=== PATIENT | female | born 1990 | race Caucasian/White ===

== ENCOUNTER 2016-10-09 18:53 | Emergency (ER) | payer BC, OTHER ==
[2016-10-09 19:03] VITALS: TEMP 98.9; BMI 31.8
--- NOTE | 2016-10-09 20:13 | PDOC ---
History of Present Illness - General Chief Complaint: Chest Pain Stated Complaint: CHEST PAIN Time Seen by Provider: 10/09/16 19:43 - History of Present Illness Initial Comments: 10/09/16 20:15 The patient is a 26 yo F with a past medical history significant for asthma, HTN , kidney stones, cholecystectomy, pseudotumor cerebri who presents with elevated blood pressure of 169/111 measured at home. The patient states shes had a stomach virus for the past week and saw her PCP who prescribed flagyl, percocet and pantoprazole. While at her PCPs office, the patient states her BP was found to be elevated and she was also prescribed Lisinopril 20 mg once daily. The patient states her PCP told her to report to the ED if her BP was greater than 170/110. The patient also endorses associated chest pain, palpitations and shortness of breath that began at 3pm today. The pain is exertional but not pleuritic. She states that she has had pain like this in the past. Pt endorses increased stressors in her life right now that may be contributing to her symptoms. The patient denies fevers, chills and cough. Denies h/o DVT/PE. Not on OCPs. The patient denies LE edema. Past History - Past Medical History Allergies/Adverse Reactions: Allergies Allergy/AdvReac Type Severity Reaction Status Date / Time acetazolamide AdvReac Unknown Verified 10/09/16 19:01 [From Diamox Sequels] Home Medications: Ambulatory Orders Ibuprofen [Advil -] 400 mg PO ONCE PRN 12/12/13 Ibuprofen [Motrin] 800 mg PO TID #20 tablet 12/12/13 Ondansetron [Zofran *Odt*] 4 mg SL TID #30 od.tablet 12/12/13 Oxycodone HCl/Acetaminophen [Percocet 5-325 mg Tablet] 1 - 2 tab PO Q6H #20 tablet 12/12/13 Lisinopril [Prinivil] 20 mg PO DAILY 10/09/16 Amlodipine Besylate 10 mg PO DAILY #7 tablet 10/10/16 Anemia: No Asthma: Yes Cancer: No Cardiac Disorders: No CVA: No COPD: No CHF: No Dementia: No Diabetes: No GI Disorders: Yes Disorders: No HTN: Yes Hypercholesterolemia: No Kidney Stones: Yes Liver Disease: No Seizures: No Thyroid Disease: No - Surgical History Abdominal Surgery: No Appendectomy: No Cardiac Surgery: No Cholecystectomy: Yes GI Surgery: Yes (GASTRIC SLEEVE) Lung Surgery: No Neurologic Surgery: (SPINAL TAPX2) Orthopedic Surgery: No - Immunization History Immunization Up to Date: No - Psycho/Social/Smoking Cessation Hx Anxiety: No Suicidal Ideation: No Smoking History: Current every day smoker Have you smoked in the past 12 months: Yes Number of Cigarettes Smoked Daily: 4 If you are a former smoker, when did you quit?: 4 months ago Information on smoking cessation initiated: Yes 'Breaking Loose' booklet given: 10/09/16 Hx Alcohol Use: No Drug/Substance Use Hx: No Substance Use Type: None Hx Substance Use Treatment: No Review of Systems - Review of Systems Comments:: 10/09/16 20:19 "GENERAL/CONSTITUTIONAL: No fever or chills. No weakness. HEAD, EYES, EARS, NOSE AND THROAT: No change in vision. No ear pain or discharge. No sore throat. CARDIOVASCULAR: +chest pain, shortness of breath and palpitations. Denies: lightheadedness. RESPIRATORY: No cough, wheezing, or hemoptysis. GASTROINTESTINAL: +nausea, no vomiting/diarrhea, No constipation. GENITOURINARY: No dysuria, frequency, or change in urination. MUSCULOSKELETAL: No joint or muscle swelling or pain. No neck or back pain. SKIN: No rash NEUROLOGIC: No headache, vertigo, loss of consciousness, or change in strength/ sensation. ALLERGIC/IMMUNOLOGIC: No hives or skin allergy. " *Physical Exam - Vital Signs Last Vital Signs Temp Pulse Resp BP Pulse Ox 98.9 F 90 18 164/112 100 10/09/16 19:01 10/09/16 19:01 10/09/16 19:01 10/09/16 19:01 10/09/16 19:01 - Physical Exam Comments: 10/09/16 20:20 "GENERAL: Awake, alert, and fully oriented, in no acute distress HEAD: No signs of trauma EYES: PERRLA, EOMI, sclera anicteric, conjunctiva clear ENT: Auricles normal inspection, hearing grossly normal, nares patent, oropharynx clear without exudates. Moist mucosa NECK: Normal ROM, supple, no lymphadenopathy, JVD, or masses LUNGS: Breath sounds equal, clear to auscultation bilaterally. No wheezes, and no crackles HEART: Regular rate and rhythm, normal S1 and S2, no murmurs, rubs or gallops ABDOMEN: Soft, epigastric tenderness to palpation, normoactive bowel sounds. No guarding, no rebound. No masses EXTREMITIES: Normal range of motion, no edema. No clubbing or cyanosis. No cords, erythema, or tenderness NEUROLOGICAL: Cranial nerves II through XII grossly intact. Normal speech, normal gait SKIN: Warm, Dry, normal turgor, no rashes or lesions noted. " Heart Score/ECG Review - History History: Slightly suspicious - Electrocardiogram EKG: Normal - Age Age: </= 45 - Risk Factors Risk Factors Heart Score: Yes Hx Hypertension, Yes Hx Obesity Based on the list above the patient has:: 1-2 risk factors - ECG Impressions Comment:: 10/09/16 20:05 no JOHNIE/STDs, no TWIs, intervals wnl, axis wnl ED Treatment Course - LABORATORY CBC & Chemistry Diagram: 10/09/16 20:25 10/09/16 20:25 - RADIOLOGY Radiology Studies Ordered: Category Date Time Status CHEST PA & LAT [RAD] Stat Radiology 10/09/16 20:02 Ordered Medical Decision Making - Medical Decision Making 10/09/16 20:05 26 F with obesity, HTN, pseudotumor cerebri presenting to ER with elevated BP, chest pain, epigastric pain, and headache. Symptoms likely due to recent gastroenteritis. ACS unlikely given pt's age and nonischemic EKG. However, she does have some risk factors, including obesity and HTN, so will r/o ACS with 2 trops. Will also r/o pancreatitis w/ lipase. Pt has no DVT/PE risk factors, PERC 0. Pt with BP 160s systolic, poorly controlled on lisinopril 20mg daily. Likely elevated 2/2 life stressors. Will check labs to evaluate kidney function. - Labs, tropx2 - CXR, UA - Reassess *DC/Admit/Observation/Transfer Diagnosis at time of Disposition: Chest pain, Hypertension - Discharge Dispostion Disposition: HOME - Prescriptions Prescriptions: Amlodipine Besylate 10 mg PO DAILY #7 tablet - Referrals Referrals: Eunice Esquivel MD [Primary Care Provider] - Odin Manzanares MD [Staff Physician] - - Patient Instructions Printed Discharge Instructions: DI for Atypical Chest Pain Additional Instructions: Take the amlodipine as prescribed once daily. Follow up with your primary care doctor within 1 week to have your blood pressure rechecked and your medications adjusted. If your elevated blood pressure is not better controlled, you may develop severe heart or kidney disease, serious illness, or even . Call the number provided to make an appointment with our cardiology clinic. If you experience worsening or persistent chest pain, shortness of breath, or any other concerning symptoms, return to the ER immediately. - Post Discharge Activity Work/School Note: Back to Work
[2016-10-09 20:34] LABS: BASOPHIL 0.5 % (0-2.0); EOSINOPHIL 0.5 % (0-4.5); MCH 30.4 pg (25.7-33.7); MCHC 33.8 g/dl (32.0-36.0); MEAN PLT VOLUME 7.3 fl (7.5-11.1); NEUTROPHILS 52.2 % (42.8-82.8); PLATELET COUNT 303 K/MM3 (134-434); RDW 12.9 % (11.6-15.6); WHITE BLOOD COUNT 6.3 K/mm3 (4.0-10.0)
[2016-10-09 20:58] LABS: ALBUMIN 3.6 g/dl (3.4-5.0); ALK PHOS 57 U/L (45-117); ANION GAP 5 (8-16); BILIRUBIN,TOTAL 0.2 mg/dL (0.2-1.0); CALCIUM 9.2 mg/dL (8.5-10.1); CO2 31 mmol/L (21-32); CREATININE 0.7 mg/dL (0.55-1.02); GLUCOSE,RANDOM 85 mg/dL (74-106); SGOT/AST 12 U/L (15-37); SGPT/ALT 30 U/L (12-78); TOT PROT 6.6 g/dl (6.4-8.2)
[2016-10-09 21:00] LABS: URINE APPEARANCE SLCLOUDY; URINE BILIRUBIN NEGATIVE (NEGATIVE); URINE BLOOD 2+ (NEGATIVE); URINE COLOR YELLOW; URINE GLUCOSE (UA) NEGATIVE (NEGATIVE); URINE KETONE TRACE (NEGATIVE); URINE LEUK ESTERASE NEGATIVE (NEGATIVE); URINE NITRITE NEGATIVE (NEGATIVE); URINE PROTEIN NEGATIVE (NEGATIVE); URINE UROBILINOGEN NEGATIVE mg/dL (0.2-1.0)
[2016-10-09 21:04] LABS: URINE HYALINE CAST 1 /lpf; URINE MUCUS MANY; URINE RBC 17 /hpf (0-3); URINE WBC 3 /hpf (3-5)
[2016-10-09 21:26] LABS: CPK 83 IU/L (26-192); TROPONIN I < 0.02 ng/ml (0.00-0.05)
[2016-10-09] MEDS ORDERED: amLODIPine BESYLATE 10 MG TABLET (FP) PO ONE (23:37)
[2016-10-09] MEDS ORDERED: amLODIPine BESYLATE 5 MG TABLET (FP) ONE (23:41)
[2016-10-10 00:56] VITALS: BP 154/103; PULSE 89
[2016-10-10 00:59] LABS: CPK 89 IU/L (26-192); TROPONIN I < 0.02 ng/ml (0.00-0.05)
--- NOTE | 2016-10-10 11:24 | EKG ---
Test Reason : Blood Pressure : / mmHG Vent. Rate : 079 BPM Atrial Rate : 079 BPM P-R Int : 152 ms QRS Dur : 094 ms QT Int : 368 ms P-R-T Axes : 042 007 000 degrees QTc Int : 421 ms NORMAL SINUS RHYTHM NORMAL ECG WHEN COMPARED WITH ECG OF 16-FEB-2004 11:38, NO SIGNIFICANT CHANGE WAS FOUND Confirmed by MARCI ZAMBRANO MD ([id number]) on 10/10/2016 11:24:07 AM Referred By: Confirmed By:MARCI ZAMBRANO MD
== END 2016-10-10 01:47 | disposition home or self-care (01) ==
LOC: JER 18:53
DX: I10 Essential (primary) hypertension (principal); R07.9 Chest pain, unspecified; Z87.442 Personal history of urinary calculi; Z87.09 Personal history of other diseases of the respiratory system
CPT/HCPCS: 36415; 80053; 81003; 81015; 83690; 83880; 84484; 84703; 85025; 93005; 93010; 99283-25

== ENCOUNTER 2020-02-06 13:12 | Inpatient (IN) | payer OTHER ==
[2020-02-06 13:25] VITALS: BMI 30.1
[2020-02-06] MEDS ORDERED: ALBUTEROL SO4 2.5/IPRATROPIUM 0.5 INH SOL 3 ML VIAL.NEB. NEB ONE ×3 (13:56→16:19)
[2020-02-06] MEDS ORDERED: DEXAMETHASONE SOD PHOSPHATE 10 MG/1 ML VIAL IVPUSH ONE (13:56)
[2020-02-06] MEDS ORDERED: ONDANSETRON 4 MG/2 ML VIAL IVPUSH ONE (13:57)
[2020-02-06] MEDS ORDERED: SODIUM CHLORIDE 0.9% 500 ML INFUS.BAG IV ONE (13:57)
[2020-02-06 14:18] LABS: BASO % 0.6 % (0-2.0); EOS % 0.4 % (0-4.5); HEMATOCRIT 38.4 % (32.4-45.2); LYMPH % 5.7 % (8-40); MCH 31.1 pg (25.7-33.7); MCHC 33.8 g/dl (32.0-36.0); MEAN CELL VOLUME 92.2 fl (80-96); MEAN PLT VOLUME 7.2 fl (7.5-11.1); MONO % 6.6 % (3.8-10.2); NEUT % 86.7 % (42.8-82.8); PLATELET COUNT 285 K/MM3 (134-434); RBC 4.16 M/mm3 (3.60-5.2); RDW 13.1 % (11.6-15.6); WHITE BLOOD COUNT 11.1 K/mm3 (4.0-10.0)
[2020-02-06 14:29] LABS: CHLORIDE 103 mmol/L (98-107); POTASSIUM 3.6 mmol/L (3.5-5.1); SODIUM 136 mmol/L (136-145)
[2020-02-06 14:31] LABS: CALCIUM 9.6 mg/dL (8.5-10.1)
[2020-02-06] MEDS ORDERED: MAGNESIUM SULF 50% (8.12 MEQ/2 ML-1 GM VIAL) IVPB ONE (14:31)
[2020-02-06 14:32] LABS: ANION GAP 7 MMOL/L (8-16); BLOOD UREA NITROGEN 8.9 mg/dL (7-18); CO2 25 mmol/L (21-32); GLUCOSE,RANDOM 105 mg/dL (74-106)
[2020-02-06 14:35] LABS: CREATININE 0.6 mg/dL (0.55-1.3); SGOT/AST 20 U/L (15-37)
[2020-02-06 14:36] LABS: BILIRUBIN,TOTAL 0.9 mg/dL (0.2-1); SGPT/ALT 23 U/L (13-61); TOT PROT 7.3 g/dl (6.4-8.2)
[2020-02-06 14:37] LABS: ALK PHOS 56 U/L (45-117)
[2020-02-06 14:40] LABS: N-TERMINAL BNP 232.2 pg/ml (5-125)
[2020-02-06] MEDS ORDERED: ONDANSETRON 4 MG/2 ML VIAL ONE (14:47)
[2020-02-06] MEDS ORDERED: DEXAMETHASONE SOD PHOSPHATE 10 MG/1 ML VIAL ONE (14:47)
[2020-02-06] MEDS ORDERED: MAGNESIUM 1GM/D5W - 1 GM/100 ML IVPB IVPB ONE (14:48)
[2020-02-06] MEDS ORDERED: ACETAMINOPHEN 1000 MG/100 ML VIAL (NON FORMULARY) IVPB ONE ×2 (14:58→21:22)
[2020-02-06] MEDS ORDERED: ACETAMINOPHEN INJECTION 100 ML IVPB ONE ×2 (14:59→21:39)
[2020-02-06 16:01] LABS: INR 0.99 (0.83-1.09); PROTHROMBIN TIME (PATIENT) 12.2 SEC (9.7-13.0)
[2020-02-06 16:03] LABS: ACTIVATED PTT 25.9 SECONDS (25.2-36.5)
[2020-02-06] MEDS: ALBUTEROL SO4 2.5/IPRATROPIUM 0.5 INH SOL 3 ML VIAL.NEB. NEB SCH ×4 (16:25→17:16)
[2020-02-06 16:45] LABS: PH,URINE 8.5 (5.0-8.0); URINE APPEARANCE CLEAR; URINE BILIRUBIN NEGATIVE (NEGATIVE); URINE COLOR YELLOW; URINE GLUCOSE (UA) NEGATIVE (NEGATIVE); URINE KETONE 1+ (NEGATIVE); URINE LEUK ESTERASE NEGATIVE (NEGATIVE); URINE NITRITE NEGATIVE (NEGATIVE); URINE PROTEIN NEGATIVE (NEGATIVE)
[2020-02-06 16:48] LABS: HCG,QUALITATIVE URINE Negative
[2020-02-06] MEDS ORDERED: ALBUTEROL SO4 0.083% IH SOL 2.5 MG/3 ML VIAL.NEB. NEB ONE ×3 (17:04→20:42)
[2020-02-06] MEDS ORDERED: AZITHROMYCIN IVPB 500 MG in DEXTROSE 5%-WATER - 250 ML IVPB ONE (20:00)
[2020-02-06] MEDS ORDERED: AZITHROMYCIN IVPB 250 MG in DEXTROSE 5%-WATER - 250 ML IVPB ONE (20:00)
[2020-02-06] MEDS ORDERED: ALBUTEROL SO4 0.083% IH SOL 2.5 MG/3 ML VIAL.NEB. NEB SCH (20:00)
[2020-02-06] MEDS ORDERED: ENOXAPARIN NA (PORCINE) 80 MG/0.8 ML DISP.SYRIN SQ ONE (20:43)
[2020-02-06] MEDS ORDERED: AZITHROMYCIN IVPB 500 MG/250 ML BAG IVPB ONE (20:43)
[2020-02-06] MEDS: ENOXAPARIN NA (PORCINE) 40 MG/0.4 ML DISP.SYRIN SQ SCH (20:44)
[2020-02-06] MEDS ORDERED: CEFTRIAXONE 1 GM/50 ML BAG ONE (22:24)
[2020-02-06] MEDS: CEFTRIAXONE 1 GM in DEXTROSE 5%-WATER - 50 ML IVPB SCH (22:38)
[2020-02-06] MEDS ORDERED: oxyCODONE HCL 10 MG SUSTAINED ACTING TABLET PO ONE (23:05)
[2020-02-07 01:29] LABS: LDH 228 U/L (84-246)
[2020-02-07 06:22] LABS: HEMATOCRIT 35.6 % (32.4-45.2); MCH 31.2 pg (25.7-33.7); MCHC 33.9 g/dl (32.0-36.0); MEAN CELL VOLUME 92.1 fl (80-96); MEAN PLT VOLUME 7.1 fl (7.5-11.1); PLATELET COUNT 271 K/MM3 (134-434); RBC 3.86 M/mm3 (3.60-5.2); RDW 13.3 % (11.6-15.6); WHITE BLOOD COUNT 8.4 K/mm3 (4.0-10.0)
[2020-02-07 06:39] LABS: POTASSIUM 4.5 mmol/L (3.5-5.1)
[2020-02-07 06:43] LABS: BLOOD UREA NITROGEN 9.2 mg/dL (7-18); MAGNESIUM 2.2 mg/dL (1.8-2.4)
[2020-02-07 06:46] LABS: CREATININE 0.6 mg/dL (0.55-1.3)
[2020-02-07] MEDS ORDERED: ALBUTEROL SO4 HFA INHALER IH ONE (08:00)
[2020-02-07] MEDS ORDERED: ACETAMINOPHEN 325 MG TABLET (FP) ONE (08:00)
[2020-02-07] MEDS: ACETAMINOPHEN 325 MG TABLET (FP) PO PRN ×2 (08:08→21:21)
[2020-02-07] MEDS: ALBUTEROL SO4 HFA INHALER IH PRN ×2 (08:09→21:22)
[2020-02-07] MEDS ORDERED: DEXAMETHASONE SOD PHOSPHATE 4 MG/1 ML VIAL IVPUSH SCH (10:00)
[2020-02-07] MEDS ORDERED: FAMOTIDINE 20 MG TABLET ONE (10:22)
[2020-02-07] MEDS ORDERED: ASCORBIC ACID 500 MG TABLET (FP) ONE (10:22)
[2020-02-07] MEDS ORDERED: ENOXAPARIN NA (PORCINE) 40 MG/0.4 ML DISP.SYRIN SQ ONE (10:23)
[2020-02-07] MEDS ORDERED: ZINC SULFATE 220 MG CAPSULE (FP) ONE (10:23)
[2020-02-07] MEDS ORDERED: LISINOPRIL 20 MG TABLET ONE (10:23)
[2020-02-07] MEDS ORDERED: CEFTRIAXONE 1 GM/50 ML BAG ONE (10:23)
[2020-02-07] MEDS ORDERED: DEXAMETHASONE SOD PHOSPHATE 4 MG/1 ML VIAL ONE (10:23)
[2020-02-07] MEDS: FAMOTIDINE 10 MG TABLET PO SCH (10:34)
[2020-02-07] MEDS: LISINOPRIL 20 MG TABLET PO SCH (10:35)
[2020-02-07] MEDS: ZINC SULFATE 220 MG CAPSULE (FP) PO SCH (10:35)
[2020-02-07] MEDS: ENOXAPARIN NA (PORCINE) 40 MG/0.4 ML DISP.SYRIN SQ SCH (10:35)
[2020-02-07] MEDS: ASCORBIC ACID 500 MG TABLET (FP) PO SCH (10:35)
[2020-02-07] MEDS: amLODIPine BESYLATE 10 MG TABLET (FP) PO SCH (10:35)
[2020-02-07] MEDS: CHOLECALCIFEROL (VIT D3) 5000 UNITS (125 MCG) CAP PO SCH (10:35)
[2020-02-07] MEDS: CEFTRIAXONE 1 GM in DEXTROSE 5%-WATER - 50 ML IVPB SCH (10:35)
[2020-02-07] MEDS: AZITHROMYCIN IVPB 250 MG in DEXTROSE 5%-WATER - 250 ML IVPB SCH (11:34)
[2020-02-07] MEDS ORDERED: methylPREDNISolone NA SUCC 40 MG/1 ML VIAL ONE (18:08)
[2020-02-07] MEDS: methylPREDNISolone NA SUCC 40 MG/1 ML VIAL IVPUSH SCH (18:14)
[2020-02-07] MEDS: MONTELUKAST NA 10 MG TABLET PO SCH (21:21)
[2020-02-07] MEDS: guaiFENesin 200 MG/10 ML 10 ML UNIT-DOSE CUPS PO PRN (22:27)
[2020-02-08] MEDS: methylPREDNISolone NA SUCC 40 MG/1 ML VIAL IVPUSH SCH ×4 (02:13→21:35)
[2020-02-08] MEDS: ALBUTEROL SO4 HFA INHALER IH PRN (06:39)
[2020-02-08] MEDS ORDERED: cefTRIAXone SODIUM 1 GM VIAL ONE (10:06)
[2020-02-08] MEDS ORDERED: DEXTROSE 5%-WATER - 50 ML IVPB ONE (10:06)
[2020-02-08] MEDS ORDERED: PT OWN MED DRAWER 7, Y5N ONE (10:06)
[2020-02-08] MEDS: FAMOTIDINE 10 MG TABLET PO SCH (10:18)
[2020-02-08] MEDS: ZINC SULFATE 220 MG CAPSULE (FP) PO SCH (10:18)
[2020-02-08] MEDS: amLODIPine BESYLATE 10 MG TABLET (FP) PO SCH (10:18)
[2020-02-08] MEDS: LISINOPRIL 20 MG TABLET PO SCH (10:19)
[2020-02-08] MEDS: CHOLECALCIFEROL (VIT D3) 5000 UNITS (125 MCG) CAP PO SCH (10:19)
[2020-02-08] MEDS: ASCORBIC ACID 500 MG TABLET (FP) PO SCH (10:19)
[2020-02-08] MEDS: CEFTRIAXONE 1 GM in DEXTROSE 5%-WATER - 50 ML IVPB SCH (10:20)
[2020-02-08] MEDS: ENOXAPARIN NA (PORCINE) 40 MG/0.4 ML DISP.SYRIN SQ SCH (10:23)
[2020-02-08] MEDS: AZITHROMYCIN IVPB 250 MG in DEXTROSE 5%-WATER - 250 ML IVPB SCH (11:13)
[2020-02-08] MEDS: ALBUTEROL SO4 2.5/IPRATROPIUM 0.5 INH SOL 3 ML VIAL.NEB. NEB SCH ×3 (13:49→20:15)
[2020-02-08] MEDS: MONTELUKAST NA 10 MG TABLET PO SCH (21:36)
[2020-02-08] MEDS: guaiFENesin 200 MG/10 ML 10 ML UNIT-DOSE CUPS PO PRN (21:45)
[2020-02-09] MEDS: ALBUTEROL SO4 2.5/IPRATROPIUM 0.5 INH SOL 3 ML VIAL.NEB. NEB SCH ×7 (00:18→23:33)
[2020-02-09] MEDS: methylPREDNISolone NA SUCC 40 MG/1 ML VIAL IVPUSH SCH ×4 (01:49→22:11)
[2020-02-09] MEDS: ACETAMINOPHEN 325 MG TABLET (FP) PO PRN (06:26)
[2020-02-09] MEDS ORDERED: PT OWN MED DRAWER 7, Y5N ONE (10:25)
[2020-02-09] MEDS ORDERED: cefTRIAXone SODIUM 1 GM VIAL ONE (10:25)
[2020-02-09] MEDS ORDERED: DEXTROSE 5%-WATER - 50 ML IVPB ONE (10:25)
[2020-02-09] MEDS: FAMOTIDINE 10 MG TABLET PO SCH (10:32)
[2020-02-09] MEDS: ZINC SULFATE 220 MG CAPSULE (FP) PO SCH (10:32)
[2020-02-09] MEDS: amLODIPine BESYLATE 10 MG TABLET (FP) PO SCH (10:32)
[2020-02-09] MEDS: guaiFENesin 200 MG/10 ML 10 ML UNIT-DOSE CUPS PO PRN ×2 (10:33→22:11)
[2020-02-09] MEDS: ASCORBIC ACID 500 MG TABLET (FP) PO SCH (10:33)
[2020-02-09] MEDS: LISINOPRIL 20 MG TABLET PO SCH (10:33)
[2020-02-09] MEDS: CHOLECALCIFEROL (VIT D3) 5000 UNITS (125 MCG) CAP PO SCH (10:33)
[2020-02-09] MEDS: CEFTRIAXONE 1 GM in DEXTROSE 5%-WATER - 50 ML IVPB SCH (10:34)
[2020-02-09] MEDS: ENOXAPARIN NA (PORCINE) 40 MG/0.4 ML DISP.SYRIN SQ SCH (10:35)
[2020-02-09] MEDS: AZITHROMYCIN IVPB 250 MG in DEXTROSE 5%-WATER - 250 ML IVPB SCH (11:16)
[2020-02-09] MEDS ORDERED: SENNOSIDES 8.6MG TABLET (FP) PO PRN (14:01)
[2020-02-09] MEDS: MONTELUKAST NA 10 MG TABLET PO SCH (22:11)
[2020-02-09] MEDS: POLYETHYLENE GLYCOL 3350 119 GM BTL PO PRN (22:11)
[2020-02-10] MEDS: ALBUTEROL SO4 2.5/IPRATROPIUM 0.5 INH SOL 3 ML VIAL.NEB. NEB SCH ×5 (05:10→20:12)
[2020-02-10] MEDS: methylPREDNISolone NA SUCC 40 MG/1 ML VIAL IVPUSH SCH ×3 (05:49→21:57)
[2020-02-10 07:48] LABS: HEMATOCRIT 37.1 % (32.4-45.2); HEMOGLOBIN 12.3 GM/dL (10.7-15.3); MCHC 33.3 g/dl (32.0-36.0); MEAN CELL VOLUME 93.3 fl (80-96); MEAN PLT VOLUME 7.1 fl (7.5-11.1); PLATELET COUNT 290 K/MM3 (134-434); RBC 3.97 M/mm3 (3.60-5.2); RDW 13.6 % (11.6-15.6); WHITE BLOOD COUNT 8.7 K/mm3 (4.0-10.0)
[2020-02-10 08:07] LABS: POTASSIUM 3.8 mmol/L (3.5-5.1)
[2020-02-10 08:11] LABS: ALBUMIN 3.3 g/dl (3.4-5.0); BLOOD UREA NITROGEN 19.5 mg/dL (7-18); CALCIUM 8.9 mg/dL (8.5-10.1)
[2020-02-10 08:14] LABS: CREATININE 0.6 mg/dL (0.55-1.3)
[2020-02-10 08:16] LABS: BILIRUBIN,TOTAL 0.5 mg/dL (0.2-1); TOT PROT 6.2 g/dl (6.4-8.2)
[2020-02-10] MEDS: amLODIPine BESYLATE 10 MG TABLET (FP) PO SCH (10:30)
[2020-02-10] MEDS: LISINOPRIL 20 MG TABLET PO SCH (10:30)
[2020-02-10] MEDS: CHOLECALCIFEROL (VIT D3) 5000 UNITS (125 MCG) CAP PO SCH (10:30)
[2020-02-10] MEDS: ZINC SULFATE 220 MG CAPSULE (FP) PO SCH (10:30)
[2020-02-10] MEDS: ASCORBIC ACID 500 MG TABLET (FP) PO SCH (10:30)
[2020-02-10] MEDS: FAMOTIDINE 10 MG TABLET PO SCH (10:31)
[2020-02-10] MEDS: ENOXAPARIN NA (PORCINE) 40 MG/0.4 ML DISP.SYRIN SQ SCH (10:31)
[2020-02-10] MEDS: guaiFENesin 200 MG/10 ML 10 ML UNIT-DOSE CUPS PO PRN (21:57)
[2020-02-10] MEDS: MONTELUKAST NA 10 MG TABLET PO SCH (21:57)
[2020-02-11] MEDS: ALBUTEROL SO4 2.5/IPRATROPIUM 0.5 INH SOL 3 ML VIAL.NEB. NEB SCH ×6 (00:08→20:27)
[2020-02-11] MEDS: methylPREDNISolone NA SUCC 40 MG/1 ML VIAL IVPUSH SCH ×3 (05:19→21:31)
[2020-02-11] MEDS: POLYETHYLENE GLYCOL 3350 119 GM BTL PO PRN (05:39)
[2020-02-11] MEDS ORDERED: PT OWN MED DRAWER 7, Y5N ONE (10:15)
[2020-02-11] MEDS: ZINC SULFATE 220 MG CAPSULE (FP) PO SCH (10:16)
[2020-02-11] MEDS: CHOLECALCIFEROL (VIT D3) 5000 UNITS (125 MCG) CAP PO SCH (10:16)
[2020-02-11] MEDS: ENOXAPARIN NA (PORCINE) 40 MG/0.4 ML DISP.SYRIN SQ SCH (10:16)
[2020-02-11] MEDS: LISINOPRIL 20 MG TABLET PO SCH (10:16)
[2020-02-11] MEDS: amLODIPine BESYLATE 10 MG TABLET (FP) PO SCH (10:16)
[2020-02-11] MEDS: ASCORBIC ACID 500 MG TABLET (FP) PO SCH (10:16)
[2020-02-11] MEDS: FAMOTIDINE 10 MG TABLET PO SCH (10:16)
[2020-02-11] MEDS: guaiFENesin 200 MG/10 ML 10 ML UNIT-DOSE CUPS PO PRN (15:50)
[2020-02-11] MEDS: MONTELUKAST NA 10 MG TABLET PO SCH (21:31)
[2020-02-12] MEDS: ALBUTEROL SO4 2.5/IPRATROPIUM 0.5 INH SOL 3 ML VIAL.NEB. NEB SCH ×5 (00:25→16:49)
[2020-02-12] MEDS: methylPREDNISolone NA SUCC 40 MG/1 ML VIAL IVPUSH SCH ×2 (05:47→15:01)
[2020-02-12] MEDS ORDERED: PT OWN MED DRAWER 7, Y5N ONE (10:10)
[2020-02-12] MEDS: ZINC SULFATE 220 MG CAPSULE (FP) PO SCH (10:23)
[2020-02-12] MEDS: amLODIPine BESYLATE 10 MG TABLET (FP) PO SCH (10:23)
[2020-02-12] MEDS: LISINOPRIL 20 MG TABLET PO SCH (10:23)
[2020-02-12] MEDS: guaiFENesin 200 MG/10 ML 10 ML UNIT-DOSE CUPS PO PRN (10:23)
[2020-02-12] MEDS: ASCORBIC ACID 500 MG TABLET (FP) PO SCH (10:23)
[2020-02-12] MEDS: FAMOTIDINE 10 MG TABLET PO SCH (10:23)
[2020-02-12] MEDS: CHOLECALCIFEROL (VIT D3) 5000 UNITS (125 MCG) CAP PO SCH (10:24)
[2020-02-12] MEDS: ENOXAPARIN NA (PORCINE) 40 MG/0.4 ML DISP.SYRIN SQ SCH (10:24)
[2020-02-12 15:17] VITALS: BP 138/81; PULSE 92; TEMP 98.6
== END 2020-02-12 19:38 | disposition home or self-care (01) | DRG 203 ==
LOC: JER 13:12 → JERBED 19:30 → J8W 02-07 18:26
PROVIDERS: ADMIT Internal Medicine; ATTEND Internal Medicine
DX: J45.901 Unspecified asthma with (acute) exacerbation (principal); R06.02 Shortness of breath; R05 Cough; R11.10 Vomiting, unspecified; R00.0 Tachycardia, unspecified; I10 Essential (primary) hypertension
CPT/HCPCS: 36415; 71045-TC-FY; 71275-TC; 80048; 80053; 81003; 82550; 82728; 83615; 83735; 83880; 84484; 84703; 85025; 85027; 85379; 85384; 85610; 85651; 85730; 86140; 86769; 87086; 87254; 87804; 87899; 93005; 93010; 93970-TC; 94150; 94640; 99285-25; C9803; J0131; J1100; Q9967; U0003

== ENCOUNTER 2021-02-23 03:26 | Emergency (ER) | payer OTHER ==
[2021-02-23 04:13] VITALS: BP 185/98; PULSE 76; TEMP 97.5; BMI 29.7
[2021-02-23] MEDS ORDERED: ACETAMINOPHEN 325 MG TABLET (FP) PO ONE (05:38)
[2021-02-23] MEDS ORDERED: ACETAMINOPHEN 325 MG TABLET (FP) ONE (05:44)
[2021-02-23 06:13] LABS: BASO % 0.6 % (0-2.0); EOS % 5.2 % (0-4.5); HEMATOCRIT 40.9 % (32.4-45.2); HEMOGLOBIN 13.6 GM/dL (10.7-15.3); LYMPH % 21.5 % (8-40); MCHC 33.2 g/dl (32.0-36.0); MEAN CELL VOLUME 93.2 fl (80-96); MONO % 7.9 % (3.8-10.2); NEUT % 64.8 % (42.8-82.8); PLATELET COUNT 289 10^3/uL (134-434); RBC 4.39 M/mm3 (3.60-5.2); WHITE BLOOD COUNT 6.1 K/mm3 (4.0-10.0)
[2021-02-23 06:34] LABS: CALCIUM 8.8 mg/dL (8.5-10.1)
[2021-02-23 06:35] LABS: ALBUMIN 3.8 g/dl (3.4-5.0); BLOOD UREA NITROGEN 10.7 mg/dL (7-18)
[2021-02-23 06:38] LABS: CREATININE 0.7 mg/dL (0.55-1.3)
[2021-02-23 06:39] LABS: BILIRUBIN,TOTAL 0.5 mg/dL (0.2-1)
[2021-02-24 17:09] LABS: SARS-CoV-2 NAA Not Detected (Not Detected)
== END 2021-02-23 07:11 | disposition home or self-care (01) ==
LOC: JER 03:26
DX: R07.9 Chest pain, unspecified (principal); Z11.52 Encounter for screening for COVID-19
CPT/HCPCS: 36415; 71046-TC-FY; 80053; 82550; 84484; 85025; 93005; 93010; 99284-25; C9803; U0003; U0005